=== PATIENT | female | born 2000 | race African-American/Black ===

== ENCOUNTER 2021-10-31 11:42 | Outpatient (CLI) | payer BC, MEDICAID ==
[~2021-10-31] VITALS: Ht 160 cm; Wt 81.1 kg
--- NOTE | 2021-10-31 11:50 | NUR ---
PT ambulatory onto unit with FOB. Pt changes into clean gown. Pt is complaining of contractions. Pt denies any leaking of fluid, vaginal bleeding, or decreased movement. FHR monitor/ TOCO applied. 1208 SVE by this RN /-3
[2021-10-31] MEDS ORDERED: PRENATAL TABLET PO (12:01)
[2021-10-31 12:30] VITALS: BP 126/77; PULSE 125; TEMP 98.6
[2021-10-31 13:00] VITALS: BP 119/77; PULSE 106
[2021-10-31 13:22] VITALS: BP 110/72; PULSE 104
--- NOTE | 2021-10-31 13:30 | NUR ---
PT AMBULATORY OFF UNIT IN STABLE CONDITION WITH SPOUSE. EARLY LABOR SIGNS AND DISCOMFORTS OF DISCUSSED. INSTRUCTED TO KEEP FOLLOW UP APPOINTMENTS AND CALL WITH ANY QUESTIONS OR CONCERNS. PT VERBALIZES UNDERSTANDING.
== END 2021-10-31 13:30 | disposition home or self-care (01) ==
LOC: LDRO 11:42
DX: O62.9 Abnormality of forces of labor, unspecified (principal); Z3A.37 37 weeks gestation of pregnancy

== ENCOUNTER 2021-11-09 06:25 | Inpatient (IN) | payer BC, MEDICAID ==
[~2021-11-09] VITALS: Ht 160 cm; Wt 81.8 kg
[2021-11-09] VITALS (35 sets, daily range): BP systolic 82–158; BP diastolic 32–94; PULSE 78–108; TEMP 97.5–99.2
[~2021-11-09 06:25] MED LIST: PRENATAL TABLET PO
[2021-11-09 08:00] LABS: BASO % 0.2 % (0.0-2.0); EOS % 0.2 % (0.0-4.0); GRAN # 9.4 K/mm3 (1.4-6.5); GRAN % 77.3 % (42.2-75.2); HEMOGLOBIN 11.6 g/dl (12.5-16.0); LYMPH # 1.9 K/mm3 (1.2-3.4); LYMPH % 15.4 % (20.0-51.0); MEAN CELL VOLUME 79 fl (80.0-100.0); MEAN CORPUSCULAR HEMOGLOBIN 25 pg (27-31); MEAN CORPUSCULAR HGB CONC 32 g/dl (33.0-37.0); MEAN PLATELET VOLUME 10.8 fl (7.4-10.4); MONO # 0.8 K/mm3 (0.1-0.6); MONO % 6.3 % (1.7-9.3); PLATELET COUNT 260 K/mm3 (130-400); RED BLOOD COUNT 4.61 M/mm3 (4.10-5.30); REDCELL DISTRIBUTION WIDTH-CV 13.6 % (11.5-14.5)
[2021-11-09 08:04] LABS: HEMATOCRIT 36.4 % (37.0-47.0)
--- NOTE | 2021-11-09 08:19 | NUR ---
0635 PATIENT HERE FOR COMPLAINTS OF LEAKING FLUID SINCE 514. SVE /-3 AMNIOTRACE POSITIVE. BUT FEEL A BULGY BAG ALSO. CONTRACTIONS GETTING MORE INTENSE PER PATIENT. PALPATE FIRM. DR DURAN CALLED AND UPDATE, ORDERS TO ADMIT FOR LABOR.
--- NOTE | 2021-11-09 08:27 | NUR ---
0700 IV STARTED IN LEFT HAND, LR HUNG AT THIS TIME
--- NOTE | 2021-11-09 08:46 | NUR ---
0750 LATE DECELERATION NOTED A THIS TIME. PATIENT REPOSITIONED AT THIS TIME AND IVF WIDE OPEN
--- NOTE | 2021-11-09 08:49 | NUR ---
0800 REPORT GIVEN TO NGUYỄN HERBERT TO ASSUME CARE AT THIS TIME
--- NOTE | 2021-11-09 09:00 | NUR ---
0839- Pt assisted to sitting on side of bed for epidural placement. YAZMIN Hargrove at bedside. O2 sat monitor on and tracing maternal HR. 0844- FHR and UCs not tracing well due to maternal position during epidural placement. 0851- Test dose, see anesthesia record. 0854- Pt assited to LL, Pt complains of pain on right side of lower abd/hip. Pt assisted to RL and explaination provided for why. Pt verbalizes understanding. EFM and TOCO adjusted and tracing well.
--- NOTE | 2021-11-09 09:45 | NUR ---
0941- Dr Roles at bedside. Pt repositioned to supine. SVE by , forebag AROM. FHR moderate variability noted with exam. IUPC placed without difficulty at 0943. 0946- FSU placed. 0953- Nichols placed. Chux changed. Pt assisted back to RL, Left leg up on strirrup.
--- NOTE | 2021-11-09 10:00 | NUR ---
Dr Roles remains at nurses station monitoring strip.
--- NOTE | 2021-11-09 10:30 | NUR ---
1015, 1020- Late decles noted, return to baseline by end of contraction. 1019- Pt repositioned to LL with Right leg on strirrup. [id number]- Early decels noted. Dr Ortiz remains at bedside monitoring strip.
--- NOTE | 2021-11-09 11:05 | NUR ---
1042- O2 on via mask at 10L. Very subtle late FHR decels noted with almost every contraction. 1100- FHR deceleration noted, this RN and Dr Roles at bedside. SVE by MD verbalized to be unchanged. FHR noted down to 80 bpm. Decision to procede with primary section. Yaz, extension service specialist in charge, Taylor Kwon, RN and Aleah Sumner CRNA at bedside. 1105- Monitors off. Pt taken to OR via bed. Transfered to OR table with transfer board. EFM on and FHR noted to be 150bpm. Scalp removed prior to abd prep.
[2021-11-09] MEDS ORDERED: IBU800 M1 PO (19:09)
[2021-11-09] MEDS ORDERED: PERCOCET 325 MG1 TA3 PO (19:10)
[2021-11-10 01:50] VITALS: BP 130/87; PULSE 77; TEMP 98.1
[2021-11-10 03:45] VITALS: BP 142/99; PULSE 104; TEMP 98
[2021-11-10 07:45] VITALS: BP 131/91; PULSE 78; TEMP 97.8
--- NOTE | 2021-11-10 10:39 | NUR ---
Family Resting; Head Holder left card of congratulations for the of their daughter and information regarding the availability of spiritual care at our hospital.
[2021-11-10 12:30] VITALS: BP 117/75; PULSE 69
== END 2021-11-10 13:55 | disposition home or self-care (01) | DRG 788 ==
LOC: LDRO 06:25 → LDR 06:30 → LDRO 07:57 → LDR 07:58 → OB 13:00
PROVIDERS: ADMIT Obstetrics & Gynecology
PROC: 10D00Z1 Extraction of Products of Conception, Low, Open Approach (ICD-10-PCS; principal; 2021-11-09)
DX: O34.13 Maternal care for benign tumor of corpus uteri, third trimester (principal); D25.9 Leiomyoma of uterus, unspecified; O76 Abnormality in fetal heart rate and rhythm complicating labor and delivery; O69.1XX0 Labor and delivery complicated by cord around neck, with compression, not applicable or unspecified; Z3A.38 38 weeks gestation of pregnancy; Z37.0 Single live birth
CPT/HCPCS: J0461; J0690; J0834; J1885; J2175; J2370; J2405; J2710; J7040; J7120